=== PATIENT | male | born 2000 | race Caucasian/White ===

== ENCOUNTER 2021-12-31 20:59 | Emergency (ER) | payer OTHER ==
[2021-12-31 21:03] VITALS: BP 154/94; PULSE 54; RESP 20; TEMP 98.7
[2021-12-31] MEDS ORDERED: ERYTHROMYCIN 5 MG/GM OPHTH OINT 3.5 GM TUBE LEFT EYE STA (21:10)
--- NOTE | 2021-12-31 21:12 | ED ---
Eye Problem HPI - General Chief complaint: Eye Problems Stated complaint: Left Eye Problem Time Seen by Provider: 12/31/21 21:05 Source: patient Mode of arrival: ambulatory Limitations: no limitations - History of Present Illness Initial comments: Left eye irritation with purulent discharge past few days. Patient has now noticed some swelling near the eyelid. No visual change. No history of immunosuppression. Patient is nonsmoker. No alcohol or drug abuse. No previous health problems. No headache, no fever or chills, no changes in vision or hearing, no sore throat or difficulty with speech, no neck pain, no chest pain or shortness of breath, no abdominal pain, no nausea or vomiting, no changes in urination or bowel m ovements, no numbness or tingling, no extremity pain, no skin rashes or lesions. MD chief complaint: eye redness Onset/Timin -: days(s) Onset Description: gradual Location: left eye Eye Symptoms: redness, itching, discharge (Purulent discharge) Severity: mild Consistency: constant Associated Symptoms: none - Related Data Patient Tetanus UTD: No Previous Rx's Medication Instructions Recorded Erythromycin Ophth Oint [Romycin 1 applic LEFT EYE QID #3.5 gm 12/31/21 Ophth Oint] Allergies Allergy/AdvReac Type Severity Reaction Status Date / Time No Known Allergies Allergy Verified 12/31/21 21:03 Review of Systems ROS Statement: Those systems with pertinent positive or pertinent negative responses have been documented in the HPI. ROS Other: All systems not noted in ROS Statement are negative. Past Medical History Past Medical History: Asthma History of Any Multi-Drug Resistant Organisms: None Reported Past Surgical History: No Surgical Hx Reported Past Psychological History: No Psychological Hx Reported Smoking Status: Never smoker Past Alcohol Use History: Occasional Past Drug Use History: None Reported General Exam - General Exam Comments Initial Comments: Nontoxic appearing male in no acute distress. Limitations: no limitations General appearance: alert, in no apparent distress Head exam: Present: atraumatic, normocephalic, normal inspection Eye exam: Present: PERRL, EOMI, conjunctival injection (Left), other (No foreign body, no evidence of surrounding erythema or rash.). Absent: scleral icterus, nystagmus, periorbital swelling, periorbital tenderness Pupils: Present: normal accommodation ENT exam: Present: normal exam, normal oropharynx, mucous membranes moist, TM's normal bilaterally, normal external ear exam. Absent: mucous membranes dry Neck exam: Present: normal inspection, full ROM. Absent: tenderness, meningismus, lymphadenopathy Respiratory exam: Present: normal lung sounds bilaterally. Absent: respiratory distress, wheezes, rales, rhonchi, stridor Cardiovascular Exam: Present: regular rate, normal rhythm, normal heart sounds. Absent: systolic murmur, diastolic murmur, rubs, gallop, clicks GI/Abdominal exam: Present: soft. Absent: tenderness Extremities exam: Present: normal inspection, full ROM, normal capillary refill. Absent: tenderness, pedal edema, joint swelling, calf tenderness Back exam: Present: normal inspection Neurological exam: Present: alert, oriented X3, CN II-XII intact Psychiatric exam: Present: normal affect, normal mood Course Vital Signs 12/31/21 21:00 Temperature 98.7 F Pulse Rate 54 L Respiratory 20 Rate Blood Pressure 154/94 O2 Sat by Pulse 100 Oximetry Medical Decision Making - Medical Decision Making Patient presentation consistent with conjunctivitis. Patient has evidence of purulent discharge. There is no evidence of foreign body. We'll treat with erythromycin ointment. Patient had no problems with visual acuity. No other symptomology. Patient was told to return to the ER for any signs or symptoms worsen. Told to return immediately if any other problems arise. All questions answered. Treatment plan discussed. Patient in agreement Every effort has been made to ensure accuracy of this dictation. However, due to the limitations of electronic medical records and dictation devices, errors in charting still occur. Supervising physician Dr. Gilliam Disposition Clinical Impression: Conjunctivitis, left eye Disposition: HOME SELF-CARE Condition: Good Instructions (If sedation given, give patient instructions): Conjunctivitis (ED) Additional Instructions: Use the erythromycin ointment 1 cm to the affected eye every 6 hours for 5-7 days. Follow-up with the chemic mangler as directed. Return to the ER immediately if any symptoms worsen, new symptoms arise, or any other problems develop. Prescriptions: Erythromycin Ophth Oint [Romycin Ophth Oint] 1 applic LEFT EYE QID #3.5 gm Is patient prescribed a controlled substance at d/c from ED?: No Referrals: Lena Muniz MD [STAFF PHYSICIAN] - 1-2 days Time of Disposition: 21:11
== END 2021-12-31 21:29 | disposition home or self-care (01) ==
LOC: EC 20:59
DX: H10.9 Unspecified conjunctivitis (principal); J45.909 Unspecified asthma, uncomplicated
CPT/HCPCS: 99283

== ENCOUNTER 2024-06-17 07:17 | Emergency (ER) | payer OTHER ==
--- NOTE | 2024-06-17 07:46 | XR ---
EXAMINATION TYPE: XR hand complete RT DATE OF EXAM: 06/17/2024 7:34 AM COMPARISON: None CLINICAL INDICATION: Male, 23 years old with history of pain; PHH, pain TECHNIQUE: XR hand complete RT 3 views were obtained. FINDINGS: Normal alignment of the visualized joints. No acute osseous pathology is identified. No e vidence of soft tissue swelling. No significant degeneration IMPRESSION: No acute osseous pathology. Multifocal osteoarthrosis throughout the joints of the hand. [facility], , 06/17/2024 7:44 AM
--- NOTE | 2024-06-17 10:14 | ED ---
General Adult HPI - General Chief complaint: Extremity Injury, Upper Stated complaint: R hand injury Time Seen by Provider: 06/17/24 08:11 Source: family, RN notes reviewed Mode of arrival: ambulatory Limitations: no limitations - History of Present Illness Initial comments: 23-year-old male presents to the emergency department for evaluation of right h and injury. Patient reports that he was putting on his shoe and something fall in his hand. He notes that this happened yesterday. He reports the pain is worse with movement of the hand. Patient also states that he manage bed this morning and felt that he was going to pass out. He does state that he got out of bed quickly. He is unsure if this is related to the pain. He denies any symptoms currently. Denies chest pain, shortness of breath. Denies recent fever, chills. - Related Data Previous Rx's Medication Instructions Recorded Erythromycin Ophth Oint [Romycin 1 applic LEFT EYE QID #3.5 gm 12/31/21 Ophth Oint] Allergies Allergy/AdvReac Type Severity Reaction Status Date / Time No Known Allergies Allergy Verified 06/17/24 07:26 Review of Systems ROS Statement: Those systems with pertinent positive or pertinent negative responses have been documented in the HPI. ROS Other: All systems not noted in ROS Statement are negative. Past Medical History Past Medical History: Asthma History of Any Multi-Drug Resistant Organisms: None Reported Past Surgical History: No Surgical Hx Reported Past Psychological History: No Psychological Hx Reported Smoking Status: Never smoker Past Alcohol Use History: Occasional Past Drug Use History: None Reported General Exam Limitations: no limitations General appearance: alert, in no apparent distress Head exam: Present: atraumatic, normocephalic, normal inspection Eye exam: Present: normal appearance, PERRL, EOMI. Absent: scleral icterus, conjunctival injection, periorbital swelling ENT exam: Present: normal exam, mucous membranes moist Respiratory exam: Present: normal lung sounds bilaterally. Absent: respiratory distress, wheezes, rales, rhonchi, stridor Cardiovascular Exam: Present: regular rate, normal rhythm, normal heart sounds. Absent: systolic murmur, diastolic murmur, rubs, gallop, clicks Extremities exam: Present: full ROM, normal capillary refill, other (Pain with flexion of the fingers). Absent: tenderness, pedal edema, joint swelling, calf tenderness Neurological exam: Present: alert, oriented X3 Psychiatric exam: Present: normal affect, normal mood Skin exam: Present: warm, dry, intact, normal color. Absent: rash Course Vital Signs 06/17/24 06/17/24 07:24 12:33 Temperature 98.1 F 98.0 F Pulse Rate 82 55 L Respiratory 18 16 Rate Blood Pressure 118/61 132/83 O2 Sat by Pulse 100 100 Oximetry Medical Decision Making - Medical Decision Making Was pt. sent in by a medical professional or institution (, PA, [employer], urgent care, hospital, or [place] [facility] facility...) When possible be specific @ -No Did you speak to anyone other than the patient for history (EMS, parent, family, police, friend...)? What history was obtained from this source @ -No Did you review nursing and triage notes (agree or disagree)? Why? @ -I reviewed and agree with nursing and triage notes Were old charts reviewed (outside hosp., previous admission, EMS record, old EKG, old radiological studies, urgent care reports/EKG's, [place] [facility] facility records)? Report findings @ -No old charts were reviewed Differential Diagnosis (chest pain, altered mental status, abdominal pain women, abdominal pain men, vaginal bleeding, weakness, fever, dyspnea, syncope, headache, dizziness, GI bleed, back pain, seizure, CVA, palpatations, mental health, musculoskeletal)? @ -Differential Musculoskeletal Muscular strain, contusion, ligament sprain, fracture, arthritis, septic arthritis, bursitis, cellulitis, muscle spasm, nerve compression, DVT, arterial occlusion, herpes zoster, electrolyte abnormality, tumor.... This is not meant to be in all inclusive list EKG interpreted by me (3pts min.). @ -EKG at 11 infectious sinus bradycardia rate 47, QRS 112, QTQTc [id number], prior EKG was reviewed and is comparable X-rays interpreted by me (1pt min.). @ -X-ray of the right hand shows no evidence of acute process CT interpreted by me (1pt min.). @ -None done U/S interpreted by me (1pt. min.). @ -None done What testing was considered but not performed or refused? (CT, X-rays, U/S, dottie bs)? Why? @ -None What meds were considered but not given or refused? Why? @ -None Did you discuss the management of the patient with other professionals (professionals i.e. , PA, [employer], lab, RT, psych nurse, social science research assistant, field education director, teacher, audit officer, manager rn case)? Give summary @ -No Was smoking cessation discussed for >3mins.? @ -No Was critical care preformed (if so, how long)? @ -No Were there social determinants of health that impacted care today? How? (Homelessness, low income, unemployed, alcoholism, drug addiction, transportation, low edu. Level, literacy, decrease access to med. care, [facility], rehab)? @ -No Was there de-escalation of care discussed even if they declined (Discuss DNR or withdrawal of care, Hospice)? DNR status @ -No What co-morbidities impacted this encounter? (DM, HTN, Smoking, COPD, CAD, Cancer, CVA, ARF, Chemo, Hep., AIDS, mental health diagnosis, sleep apnea, morbid obesity)? @ -None Was patient admitted / discharged? Hospital course, mention meds given and route, prescriptions, significant lab abnormalities, going to OR and other pertinent info. @ -Discharge. Patient presented emergency department for evaluation of hand injury and presyncope. X-rays obtained of the right hand showed no evidence of acute fracture. Distally neurovascularly intact. EKG was performed as the patient admitted to presyncopal episode. EKG compared to prior and shows no acute changes. He has not had any further symptoms of lightheadedness. Patient will be discharged home. Patient understanding and agreeable with plan. Patient stable at time of discharge. Case discussed with Dr. Evans Undiagnosed new problem with uncertain prognosis? @ -No Drug Therapy requiring intensive monitoring for toxicity (Heparin, Nitro, Insulin, Cardizem)? @ -No Were any procedures done? @ -No Diagnosis/symptom? @ -Hand injury Acute, or Chronic, or Acute on Chronic? @ -acute Uncomplicated (without systemic symptoms) or Complicated (systemic symptoms)? @ -uncomplciated Side effects of treatment? @ -No Exacerbation, Progression, or Severe Exacerbation? @ -No Poses a threat to life or bodily function? How? (Chest pain, [place], [place], pneumonia, PE, COPD, DKA, ARF, appy, cholecystitis, CVA, Diverticulitis, Homicidal, Suicidal, threat to staff... and all critical care pts) @ -No Disposition Clinical Impression: Pre-syncope, Hand injury Disposition: HOME SELF-CARE Condition: Stable Instructions (If sedation given, give patient instructions): Hand Sprain (ED) Additional Instructions: Please utilize anti-inflammatory medication such as ibuprofen for pain and swelling. Follow up with your primary care provider. Return to the emergency department for new or worsening symptoms. Is patient prescribed a controlled substance at d/c from ED?: No Referrals: None,Stated [Primary Care Provider] - 1-2 days
[2024-06-17 12:33] VITALS: BP 132/83; PULSE 55; RESP 16; TEMP 98
== END 2024-06-17 12:34 | disposition home or self-care (01) ==
LOC: EC 07:17
DX: S69.91XA Unspecified injury of right wrist, hand and finger(s), initial encounter (principal); R55 Syncope and collapse; R00.1 Bradycardia, unspecified; W20.8XXA Other cause of strike by thrown, projected or falling object, initial encounter
CPT/HCPCS: 93005; 99283

== ENCOUNTER 2025-01-10 07:27 | Emergency (ER) | payer OTHER ==
[2025-01-10 07:32] VITALS: TEMP 97.4
--- NOTE | 2025-01-10 07:56 | ED ---
Abdominal Pain HPI - General Chief Complaint: Abdominal Pain Stated Complaint: Blood in stool/ND Time Seen by Provider: 01/10/25 07:33 Source: patient, RN notes reviewed Mode of arrival: ambulatory Limitations: no limitations - History of Present Illness Initial Comments: This is a 24-year-old male who presents to the emergency department for abdominal pain and diarrhea. States that over the last 3 days he has had very loose stool with occasional abdominal pain and headaches. States that he is having 3-4 bowel movements a day, however they are much looser than normal. He is concerned because today when he went to use the bathroom he noticed some bright red blood mixed in with his stool. This has only happened once. Denies any current abdominal pain. He does report occasional nausea associated with this, however it is not currently present. Denies any new foods or medications. MD Complaint: abdominal pain - Related Data Previous Rx's Medication Instructions Recorded Erythromycin Ophth Oint [Romycin 1 applic LEFT EYE QID #3.5 gm 12/31/21 Ophth Oint] Dicyclomine [Bentyl] 20 mg PO QID PRN #20 tablet 01/10/25 Allergies Allergy/AdvReac Type Severity Reaction Status Date / Time No Known Allergies Allergy Verified 01/10/25 07:32 Review of Systems ROS Statement: Those systems with pertinent positive or pertinent negative responses have been documented in the HPI. ROS Other: All systems not noted in ROS Statement are negative. Past Medical History Past Medical History: Asthma History of Any Multi-Drug Resistant Organisms: None Reported Past Surgical History: No Surgical Hx Reported Past Psychological History: No Psychological Hx Reported Smoking Status: Never smoker Past Alcohol Use History: Occasional Past Drug Use History: None Reported General Exam Limitations: no limitations General appearance: alert, in no apparent distress Head exam: Present: atraumatic, normocephalic, normal inspection Respiratory exam: Present: normal lung sounds bilaterally. Absent: respiratory distress, wheezes, rales, rhonchi, stridor Cardiovascular Exam: Present: regular rate, normal rhythm GI/Abdominal exam: Present: soft. Absent: distended, tenderness Neurological exam: Present: alert, oriented X3, CN II-XII intact Psychiatric exam: Present: normal affect, normal mood Skin exam: Present: warm, dry, intact, normal color. Absent: rash Course Vital Signs 01/10/25 07:29 Temperature 97.4 F L Pulse Rate 59 L Respiratory 18 Rate Blood Pressure 162/82 O2 Sat by Pulse 100 Oximetry Medical Decision Making - Medical Decision Making This is a 24 year old male who presents to the emergency department for abd ominal pain and diarrhea. Was pt. sent in by a medical professional or institution? @ -No Did you speak to anyone other than the patient for history? @ -No Did you review nursing and triage notes? @ -Yes, and I agree, it is accurate with regards to the patient's symptoms. Were old charts reviewed? @ -No Differential Diagnosis? @ -Differential Abdominal Pain Men: Appendicitis, cholecystitis, diverticulosis, ischemic bowel, pancreatitis, hepatitis, UTI, gastroenteritis, AAA, incarcerated hernia, bowel obstruction, constipation, inflammatory bowel, hepatitis, peptic ulcer disease, splenic infarction, perforated viscus, testicular torsion, this is not meant to be an all-inclusive list EKG interpreted by me (3pts min.)? @ -Not obtained X-rays interpreted by me (1pt min.)? @ -KUB x-ray obtained. My interpretation identifies no dilation of the bowel loops. CT interpreted by me (1pt min.)? @ -Not obtained U/S interpreted by me (1pt. min.)? @ -Not obtained What testing was considered but not performed? (CT, X-rays, U/S, labs)? Why? @ -None What meds were considered but not given? Why? @ -None Did you discuss the management of the patient with other professionals? @ -No Did you reconcile home meds? @ -No Was smoking cessation discussed for >3mins.? @ -No Was critical care preformed (if so, how long)? @ -No Were there social determinants of health that impacted care today? How? (Homelessness, low income, unemployed, alcoholism, drug addiction, transportation, low edu. Level, literacy, decrease access to med. care, penitentiary, rehab)? @ -No Was there de-escalation of care discussed even if they declined? (Discuss DNR or withdrawal of care, Hospice)? @ -No What co-morbidities impacted this encounter? (DM, HTN, Smoking, COPD, CAD, Cancer, CVA, Hep., AIDS, mental health diagnosis, sleep apnea, morbid obesity)? @ -None Was patient admitted / discharged? @ -Discharged. Lab work unremarkable. KUB x-ray obtained demonstrating minimal scattered stool without other acute process. Discussed that the bleeding is likely related to something like a hemorrhoid or other irritation. Patient remained asymptomatic in the emergency department. He was sent home with Lomotil to use as needed for any additional diarrhea. He is advised that he can also use [id number] Imodium. Additionally, Bentyl was prescribed to help with any additional abdominal discomfort or cramping. Otherwise advised follow-up with his PCP for reevaluation. Patient discharged home in stable condition. Case discussed with ED attending Dr. Sanders. Return precautions reviewed in depth, the patient is instructed to return to the emergency department with any new, worsening, or concerning symptoms. Patient verbalized understanding. Undiagnosed new problem with uncertain prognosis? @ -None Drug Therapy requiring intensive monitoring for toxicity (Heparin, Nitro, I nsulin, Cardizem)? @ -None Were any procedures done? @ -None Diagnosis/symptom? @ -Diarrhea, rectal bleeding Acute, or Chronic, or Acute on Chronic? @ -Acute Uncomplicated (without systemic symptoms) or Complicated (systemic symptoms)? @ -Uncomplicated Side effects of treatment? @ -None Exacerbation, Progression, or Severe Exacerbation] @ -Not applicable Poses a threat to life or bodily function? @ -No - Lab Data Result diagrams: 01/10/25 07:56 01/10/25 07:56 Lab Results 01/10/25 01/10/25 Range/Units 07:56 07:56 WBC 7.76 (4.50-10.00) 10*3/uL RBC 5.51 (4.40-5.60) 10*6/uL Hgb 16.7 (13.0-17.0) g/dL Hct 49.2 (39.6-50.0) % MCV 89.3 (80.0-97.0) fL MCH 30.3 (27.0-32.0) pg MCHC 33.9 (32.0-37.0) g/dL Plt Count 167 (140-440) 10*3/uL MPV 10.0 (9.5-12.2) fL Immature Gran % (Auto) 0.3 % Neutrophils % 74.4 % Lymphocytes % 12.4 % Monocytes % 10.2 % Eosinophils % 2.2 % Basophils % 0.5 % Immature Gran # 0.02 (0.00-0.04) 10*3/uL Neutrophils # 5.78 (1.80-7.70) 10*3/uL Lymphocytes # 0.96 (0.90-5.00) 10*3/uL Monocytes # 0.79 (0.20-1.00) 10*3/uL Eosinophils # 0.17 (0.04-0.35) 10*3/uL Basophils # 0.04 (0.00-0.10) 10*3/uL Sodium 142 (137-145) mmol/L Potassium 4.5 (3.5-5.1) mmol/L Chloride 105 (98-107) mmol/L Carbon Dioxide 27 (22-30) mmol/L Anion Gap 10 mmol/L BUN 21 H (9-20) mg/dL Creatinine 0.72 (0.66-1.25) mg/dL Est GFR (CKD-EPI)AfAm >90 (>60 ml/min/1.73 sqM) Est GFR (CKD-EPI)NonAf >90 (>60 ml/min/1.73 sqM) Glucose 87 (74-99) mg/dL Calcium 9.7 (8.4-10.2) mg/dL Magnesium 2.0 (1.6-2.3) mg/dL Total Bilirubin 1.0 (0.2-1.3) mg/dL AST 40 (17-59) U/L ALT 30 (4-49) U/L Alkaline Phosphatase 41 (38-126) U/L Total Protein 7.9 (6.3-8.2) g/dL Albumin 4.7 (3.5-5.0) g/dL Lipase 60 (23-300) U/L - Radiology Data Radiology results: report reviewed, image reviewed Disposition Clinical Impression: Diarrhea, Blood in stool Disposition: HOME SELF-CARE Instructions (If sedation given, give patient instructions): Rectal Bleeding (ED), Acute Diarrhea (ED) Additional Instructions: Return to the emergency department with any new, worsening, or concerning symptoms. You can take the Lomotil provided in the emergency department for diarrhea and the Zofran for any nausea or vomiting. The Bentyl prescribed can be taken to help with abdominal cramping as well as any diarrhea. Follow up with your primary care provider in 1-2 days. Prescriptions: Dicyclomine [Bentyl] 20 mg PO QID PRN #20 tablet PRN Reason: Gi Upset Is patient prescribed a controlled substance at d/c from ED?: No Referrals: None,Stated [Primary Care Provider] - 1-2 days [facility] [NON-STAFF] - 1-2 days [facility] [NON-STAFF] - 1-2 days Forms: Area PCPs Time of Disposition: 09:04
[2025-01-10] MEDS: DIPHENOX-ATROP 2.5-0.025 MG 1 EACH TAB PO STA (08:01)
[2025-01-10] MEDS: SODIUM CHLORIDE 0.9% 1,000 ML IV ONE (08:01)
[2025-01-10 08:11] LABS: Basophils # (A) 0.04 10*3/uL (0.00-0.10); Basophils % (A) 0.5 %; Eosinophils # (A) 0.17 10*3/uL (0.04-0.35); Eosinophils % (A) 2.2 %; HCT 49.2 % (39.6-50.0); HGB 16.7 g/dL (13.0-17.0); Lymphocytes # (A) 0.96 10*3/uL (0.90-5.00); Lymphocytes % (A) 12.4 %; MCH 30.3 pg (27.0-32.0); MCHC 33.9 g/dL (32.0-37.0); MCV 89.3 fL (80.0-97.0); Monocytes # (A) 0.79 10*3/uL (0.20-1.00); Monocytes % (A) 10.2 %; Neutrophils # (A) 5.78 10*3/uL (1.80-7.70); Neutrophils % (A) 74.4 %; Platelet Count 167 10*3/uL (140-440); RBC 5.51 10*6/uL (4.40-5.60); RDW 12.4 % (11.5-14.5); WBC 7.76 10*3/uL (4.50-10.00)
[2025-01-10 08:32] LABS: ALT 30 U/L (4-49); African American GFR (CKD) >90 (>60 ml/min/1.73 sqM); Anion Gap 10 mmol/L; Blood Urea Nitrogen 21 mg/dL (9-20); Calcium 9.7 mg/dL (8.4-10.2); Carbon Dioxide 27 mmol/L (22-30); Chloride 105 mmol/L (98-107); Glucose 87 mg/dL (74-99); Lipase 60 U/L (23-300); Non-African American GFR(CKD) >90 (>60 ml/min/1.73 sqM); Sodium 142 mmol/L (137-145)
--- NOTE | 2025-01-10 08:33 | XR ---
EXAMINATION TYPE: XR KUB DATE OF EXAM: 01/10/2025 8:23 AM COMPARISON: 11/07/2022 CLINICAL INDICATION: Male, 24 years old with history of Abdominal pain; PHH, pain TECHNIQUE: One radiographic view of the abdomen was obtained. FINDINGS: Lung bases are clear. No evidence for free intraperitoneal air. No dilated small bowel or air-fluid levels. Minimal scattered stool. No suspicious calcifications are seen. IMPRESSION: No evidence for free air or bowel obstruction. Minimal scattered stool. [facility], , 01/10/2025 8:31 AM
[2025-01-10 08:34] LABS: AST 40 U/L (17-59); Albumin 4.7 g/dL (3.5-5.0); Alkaline Phosphatase 41 U/L (38-126); Magnesium 2.0 mg/dL (1.6-2.3); Potassium 4.5 mmol/L (3.5-5.1); Total Protein 7.9 g/dL (6.3-8.2)
[2025-01-10] MEDS: DIPHENOX-ATROP STARTER PACK 8 TAB BTL PO STA (09:35)
[2025-01-10] MEDS: ONDANSETRON 4 MG ODT STARTER PACK TAB BTL PO STA (09:35)
[2025-01-10 09:38] VITALS: BP 134/90; PULSE 54; RESP 16
== END 2025-01-10 09:40 | disposition home or self-care (01) ==
LOC: EC 07:27
DX: K92.1 Melena (principal); R19.7 Diarrhea, unspecified
CPT/HCPCS: 36415; 80053; 83690; 83735; 85025; 74018; 99284; 96360; 96361; S0119